=== PATIENT | female | born 1995 | race Asian ===

== ENCOUNTER 2017-12-01 18:31 | Emergency (ER) | payer OTHER ==
[~2017-12-01] VITALS: Ht 170.2 cm; Wt 52.7 kg
[~2017-12-01 18:31] MED LIST: BCPILLS PO; BIOT1CAP8 PO; MULT-513 PO; NAPR500T3 PO
[2017-12-01 18:38] VITALS: Ht 170.2 cm; Wt 52.7 kg
[2017-12-01] MEDS ORDERED: ACETAMINOPHEN 500 MG TAB PO STA (20:15)
[2017-12-01] MEDS ORDERED: SODIUM CHLORIDE 0.9% 1000ML 1,000 ML IV ONE (20:15)
[2017-12-01] MEDS ORDERED: GI COCKTAIL PO STA (20:15)
[2017-12-01] MEDS ORDERED: ONDANSETRON INJ 2 MG/ML 2 ML VIAL IV STA (20:15)
--- NOTE | 2017-12-01 20:23 | EMERGENCY ROOM VISIT NOTE ---
History First contact with patient: 19:54 Chief Complaint: ILLNESS Stated Complaint: POSSIBLE GASTRITIS, HEADACHE, FEVER, LIGHT SENSITI Nursing Triage Summary: Patient had abdominal pain for 2 days. Seen S, diagnoised gastritis given medication (zofran, omeprazole, ranitidine). Today mild abdominal pain but now with headache and light sensitivity. History of Present Illness The patient is a 22 year old female who presents to the Emergency Room with complaints of abdominal bloating, nausea and vomiting. The patient says that she typically gets bouts of abdominal bloating every few months. She has been to a GI specialist and diagnosed with IBS. The pain was worse today. She saw [facility]. She was told that she had gastritis, and prescribed omeprazole, Zofran and ranitidine. She took the medication as prescribed this afternoon. The vomiting occurred afterwards. The patient is also now complaining of a fever as high as 100F and a headache. She denies any diarrhea. No other symptoms such as sore throat, sinus congestion or cough. She received a flu vaccine this year. She denies any heavy caffeine, alcohol or NSAID use. She is scheduled for an endoscopy in the next month. Review of Systems 10 system review performed and negative unless noted in HPI or below Past Medical/Surgical History Medical Problems: (1) No known problems Social History Smoking Status: Never Smoker Marital Status: single Occupation Status: [employer] student Current/Historical Medications Scheduled Biotin (Biotin), 1 CAP PO DAILY Control Pills ( Control Pills), 1 TAB PO DAILY Multivitamins/Minerals (Mvi With Minerals), 1 TAB PO DAILY Scheduled PRN Naproxen (Naproxen), 500 MG PO BID PRN for Pain or Fever Physical Exam Vital Signs Date Time Temp Pulse Resp B/P (MAP) Pulse Ox O2 Delivery O2 Flow Rate FiO2 12/01/17 21:18 37.2 67 18 105/64 100 Room Air 12/01/17 18:38 37.2 89 16 112/73 98 Room Air Physical Exam VITALS: Vitals are noted on the nurse's note and reviewed by myself. Vital signs stable. GENERAL: 22-year-old female, in no acute distress, nondiaphoretic, well- developed well-nourished. SKIN: The skin was without rashes, erythema, edema, or bruising. HEAD: Normocephalic atraumatic. EARS: External auditory canals clear, tympanic membranes pearly kumar without erythema or effusion bilaterally. EYES: Conjunctivae without injection, sclerae without icterus. Extraocular movements intact. NOSE: Patent, turbinates without inflammation or discharge. No sinus tenderness. MOUTH: Mucous membranes moist. Tonsils are not enlarged. Pharynx without erythema or exudate. Uvula midline. Airway patent. Tongue does not deviate. NECK: Supple without nuchal rigidity. No lymphadenopathy. Cervical spine is nontender. No JVD. HEART: Regular rate and rhythm without murmurs gallops or rubs. LUNGS: Clear to auscultation bilaterally without wheezes, rales or rhonchi. No accessory muscle use. ABDOMEN: Positive bowel sounds x 4.Soft, mild tenderness to palpation in the epigastric region., without organomegaly. No guarding or rebound tenderness. MUSCULOSKELETAL: No muscle atrophy, erythema, or edema noted. . Strength 5/5 throughout. NEURO: Patient was alert and oriented to person place and time. Normal sensation to touch. No focal neurological deficits. Medical Decision & Procedures ER Provider Diagnostic Interpretation: Abdominal/chest x-rays IMPRESSION: No acute cardiopulmonary process. No evidence for bowel obstruction. Electronically signed by: David Pitt M.D. 12/01/2017 9:31 PM Laboratory Results 12/01/17 20:25 Red Blood Count 4.59, Mean Corpuscular Volume 87.8, Mean Corpuscular Hemoglobin 30.1, Mean Corpuscular Hemoglobin Concent 34.2, Mean Platelet Volume 9.9, Neutrophils (%) (Auto) 72.6, Lymphocytes (%) (Auto) 16.6, Monocytes (%) (Auto) 10.3, Eosinophils (%) (Auto) 0.1, Basophils (%) (Auto) 0.3, Neutrophils # (Auto ) 4.98, Lymphocytes # (Auto) 1.14, Monocytes # (Auto) 0.71, Eosinophils # (Auto ) 0.01, Basophils # (Auto) 0.02 12/01/17 20:25 Test 12/01/17 20:25 12/01/17 20:50 White Blood Count 6.87 K/uL (4.8-10.8) Red Blood Count 4.59 M/uL (4.2-5.4) Hemoglobin 13.8 g/dL (12.0-16.0) Hematocrit 40.3 % (37-47) Mean Corpuscular Volume 87.8 fL (80-100) Mean Corpuscular Hemoglobin 30.1 pg (25-34) Mean Corpuscular Hemoglobin Concent 34.2 g/dl (32-36) Platelet Count 207 K/uL (130-400) Mean Platelet Volume 9.9 fL (7.4-10.4) Neutrophils (%) (Auto) 72.6 % Lymphocytes (%) (Auto) 16.6 % Monocytes (%) (Auto) 10.3 % Eosinophils (%) (Auto) 0.1 % Basophils (%) (Auto) 0.3 % Neutrophils # (Auto) 4.98 K/uL (1.4-6.5) Lymphocytes # (Auto) 1.14 K/uL (1.2-3.4) Monocytes # (Auto) 0.71 K/uL (0.11-0.59) Eosinophils # (Auto) 0.01 K/uL (0-0.5) Basophils # (Auto) 0.02 K/uL (0-0.2) RDW Standard Deviation 40.0 fL (36.4-46.3) RDW Coefficient of Variation 12.5 % (11.5-14.5) Immature Granulocyte % (Auto) 0.1 % Immature Granulocyte # (Auto) 0.01 K/uL (0.00-0.02) Anion Gap 5.0 mmol/L (3-11) Est Creatinine Clear Calc Drug Dose 102.5 ml/min Estimated GFR () 139.1 Estimated GFR (Non- 120.1 BUN/Creatinine Ratio 10.2 (10-20) Calcium Level 8.9 mg/dl (8.5-10.1) Total Bilirubin 0.3 mg/dl (0.2-1) Aspartate Amino Transf (AST/SGOT) 13 U/L (15-37) Alanine Aminotransferase (ALT/SGPT) 14 U/L (12-78) Alkaline Phosphatase 50 U/L (45-117) Total Protein 7.5 gm/dl (6.4-8.2) Albumin 3.4 gm/dl (3.4-5.0) Globulin 4.1 gm/dl (2.5-4.0) Albumin/Globulin Ratio 0.8 (0.9-2) Lipase 93 U/L (73-393) Urine Color YELLOW Urine Appearance CLEAR (CLEAR) Urine pH 6.5 (4.5-7.5) Urine Specific [place] 1.011 (1.000-1.030) Urine Protein NEG (NEG) Urine Glucose (UA) NEG (NEG) Urine Ketones NEG (NEG) Urine Occult Blood NEG (NEG) Urine Nitrite NEG (NEG) Urine Bilirubin NEG (NEG) Urine Urobilinogen NEG (NEG) Urine Leukocyte Esterase NEG (NEG) Urine Test NEG (NEG) Influenza Type A Antigen Neg for Influ A (NEG) Influenza Type B Antigen Neg for Influ B (NEG) Medications Administered Medications (Trade) Dose Ordered Sig/Ayan Route Start Time Stop Time Status Last Admin Dose Admin Sodium Chloride 1,000 ml @ 999 mls/hr Q1H1M ONCE IV 12/01/17 20:15 12/01/17 21:15 DC 12/01/17 20:35 999 MLS/HR Ondansetron HCl (Zofran Inj) 4 mg NOW STAT IV 12/01/17 20:15 12/01/17 20:18 DC 12/01/17 20:35 4 MG Acetaminophen (Tylenol Tab) 1,000 mg NOW STAT PO 12/01/17 20:15 12/01/17 20:18 DC 12/01/17 20:37 1,000 MG Al Hydroxide/Mg Hydroxide (Maalox Susp) 30 ml STK-MED ONCE .ROUTE 12/01/17 20:28 12/01/17 20:29 DC 12/01/17 20:36 30 ML Lidocaine HCl (Viscous Lidocaine 2% Soln) 20 ml STK-MED ONCE .ROUTE 12/01/17 20:29 12/01/17 20:30 DC 12/01/17 20:36 20 ML ED Course Patient was seen and examined Vital signs including blood pressure were reviewed medications list was verified with patient Labs were obtained, and a saline lock was established The patient was medicated with Tylenol and a GI cocktail. She was also given Zofran for nausea. She was hydrated with 500 mL normal saline. The patient's workup was reviewed. She was reevaluated. Her symptoms were improved. We discussed her results. She voiced understanding, was comfortable being discharged home. The case was also discussed with my supervising physician who is in agreement with my plan. I reviewed discharge instructions the patient. They voiced understanding and had no further questions. Medical Decision Differential diagnosis: Bronchitis, pneumonia, strep pharyngitis, viral pharyngitis, influenza , viral GI illness, bacterial GI illness, bowel obstruction, pancreatitis, gallbladder disease, gastritis This patient is a 22-year-old female presents to emergency department complaining of epigastric discomfort, vomiting and fever. On exam, she is nontoxic in appearance. He does not have any signs of meningitis. She was mildly tender in epigastric region. She did not have any guarding or rebound tenderness. I do not suspect an acute abdomen. Her labs reveal no leukocytosis. LFTs and lipase are all within normal limits. I do not suspect gallbladder pathology. Imaging was performed. No signs of obstruction were noted. I believe she likely has a viral illness causing her vomiting and headache. I do not think this is related to her chronic abdominal discomfort. She was cautioned however that I did not rule out appendicitis per CAT scan. She was informed to have a reevaluation by a provider in 24-48 hours. I also cautioned her to return immediately with any new, worsening or concerning symptoms This chart was completed in part utilizing [employer] Speech Voice Recognition software. Attempts were made to minimize the grammatical errors, random word insertions, pronoun errors and incomplete sentences. Any formal questions or concerns about the content, text or information contained within the body of this dictation should be directly addressed to the provider for clarification. Medication Reconcilliation Current Medication List: was personally reviewed by me Blood Pressure Screening Patient's blood pressure: Normal blood pressure Impression Primary Impression: Vomiting Additional Impression: Abdominal pain Departure Information Dispostion Home / Self-Care Condition GOOD Referrals No Doctor, Assigned (PCP) Patient Instructions [facility] Additional Instructions You have been evaluated in the emergency department for abdominal pain, vomiting and headache. Your blood work did not show any significant abnormalities. X-rays were also performed and within normal limits. This is likely due to gastritis. Please continue current medications as prescribed. Avoid NSAID pain medications such as ibuprofen, Motrin, Aleve, naproxen Please also avoid spicy and acidic foods. No alcohol. Limited caffeine. You may take Tylenol 2 tabs every 6 hours as needed for headache/fever. Do not exceed 3000 mg in a 24-hour period Please follow-up with the GI doctor as scheduled. You should be reevaluated in the next 48 hours for recheck Please do not hesitate to return to the emergency department with any new, worsening or concerning symptoms; especially, worsening pain particularly in the right lower abdomen, increase in fever or vomiting. School Instructions Return To School: 1 day Problem Qualifiers
[2017-12-01] MEDS ORDERED: LIDOCAINE HCL 1% 20 ML VIAL ONE (20:28)
[2017-12-01] MEDS ORDERED: ALUMINUM/MAGNESIUM SUSP 30 ML UDC ONE (20:28)
[2017-12-01] MEDS ORDERED: LIDOCAINE HCL 2% VISC SOLN 20 ML UDC ONE (20:29)
[2017-12-01 20:43] LABS: BASO % 0.3 %; BASO ABS # 0.02 K/uL (0-0.2); EOS % 0.1 %; EOS ABS # 0.01 K/uL (0-0.5); HEMATOCRIT 40.3 % (37-47); HEMOGLOBIN 13.8 g/dL (12.0-16.0); IG# 0.01 K/uL (0.00-0.02); LYMPH % 16.6 %; LYMPH ABS # 1.14 K/uL (1.2-3.4); MEAN CELL VOLUME 87.8 fL (80-100); MEAN CORPUSCULAR HEMOGLOBIN 30.1 pg (25-34); MEAN CORPUSCULAR HGB CONC 34.2 g/dl (32-36); MEAN PLATELET VOLUME 9.9 fL (7.4-10.4); MONO % 10.3 %; MONO ABS # 0.71 K/uL (0.11-0.59); NEUT % 72.6 %; NEUT ABS # 4.98 K/uL (1.4-6.5); PLATELET COUNT 207 K/uL (130-400); RED CELL DISTRIBUTION WIDTH CV 12.5 % (11.5-14.5); WHITE BLOOD COUNT 6.87 K/uL (4.8-10.8)
[2017-12-01 21:03] LABS: ALBUMIN 3.4 gm/dl (3.4-5.0); CALCIUM 8.9 mg/dl (8.5-10.1); CREATININE 0.71 mg/dl (0.60-1.20); POTASSIUM 3.5 mmol/L (3.5-5.1)
[2017-12-01 21:06] LABS: TOTAL PROTEIN 7.5 gm/dl (6.4-8.2)
[2017-12-01 21:18] VITALS: TEMP 37.2
--- NOTE | 2017-12-01 21:32 | DIAGNOSTIC IMAGING REPORT ---
CHEST AND ABDOMEN 2 VIEWS HISTORY: Epigastric abdominal pain. Nausea. Vomiting. COMPARISON: Chest 08/22/2014. FINDINGS: The lungs are clear. The cardiomediastinal silhouette is within normal limits. There is no pneumoperitoneum or pneumatosis. The bowel gas pattern is unremarkable. No evidence for bowel obstruction. No pathologic calcifications. IMPRESSION: No acute cardiopulmonary process. No evidence for bowel obstruction. Electronically signed by: David Pitt M.D. 12/01/2017 9:31 PM Dictated Date/Time: 12/01/2017 9:29 PM
[2017-12-01 21:37] LABS: INFLUENZA B ANTIGEN Neg for Influ B (NEG)
[2017-12-01 22:42] VITALS: BP 99/58; PULSE 54; O2SAT 97
== END 2017-12-01 22:53 | disposition home or self-care (01) ==
LOC: C.EDB 18:33
DX: R10.13 Epigastric pain (principal); R11.2 Nausea with vomiting, unspecified; R51 Headache; R50.9 Fever, unspecified